=== PATIENT | male | born 1980 | race Caucasian/White ===

== ENCOUNTER → 2016-09-08 | Outpatient (CLI) | payer BC | LOC: COL.RAD 13:29 | DX: R22.2 Localized swelling, mass and lump, trunk (principal); D36.7 Benign neoplasm of other specified sites ==

== ENCOUNTER → 2021-05-27 | Outpatient (CLI) | payer BC | LOC: COL.RAD 12:22 | DX: G43.019 Migraine without aura, intractable, without status migrainosus (principal) ==